=== PATIENT | male | born 1955 ===

== ENCOUNTER 2018-07-18 07:13 | Outpatient (CLI) | payer SELFPAY | END 2018-07-18 07:14 | disposition home or self-care (01) | LOC: C.LAB 07:13 | DX: M79.602 Pain in left arm (principal); R51 Headache; R42 Dizziness and giddiness; Z12.5 Encounter for screening for malignant neoplasm of prostate ==

== ENCOUNTER 2018-07-21 15:00 | Outpatient (CLI) | payer SELFPAY | END 2018-07-21 15:01 | disposition home or self-care (01) | LOC: C.LAB 15:00 | DX: Z12.11 Encounter for screening for malignant neoplasm of colon (principal) ==